=== PATIENT | female | born 1945 | race American Indian/Alaskan Native ===

== ENCOUNTER 2017-10-23 18:14 | Emergency (ER) | payer MEDICARE, OTHER ==
[~2017-10-23] VITALS: Ht 152.4 cm; Wt 64.4 kg
[~2017-10-23 18:14] MED LIST: ASPIR-LOW81 MG PO; BENADRYL25 MG PO; CALCIUM600 MG PO; CYCLOBENZAPRINE10 MG PO; DIAZEPAM5 MG PO; GABAPENTIN600 MG PO; LANTUS100 UNITS/ SUB-Q; LIPITOR10 MG PO; LISINOPRIL20 MG PO; METFORMIN HCL500 MG PO; MULTIVITAMINS1 EAC7 PO; PREDNISONE20 MG PO; VITAMIN D350000 UNIT PO
[2017-10-23] MEDS ORDERED: CYCLOBENZAPRINE10 MG PO (18:46)
[2017-10-23] MEDS ORDERED: ARNUITY ELLIPT50 MCG NAS (18:47)
[2017-10-23] MEDS ORDERED: OMEPRAZOLE20 MG PO (18:47)
== END 2017-10-23 21:25 | disposition home or self-care (01) ==
LOC: ED 18:14
DX: R51 Headache (principal); E11.9 Type 2 diabetes mellitus without complications; I10 Essential (primary) hypertension; E78.00 Pure hypercholesterolemia, unspecified; Z79.899 Other long term (current) drug therapy; Z79.84 Long term (current) use of oral hypoglycemic drugs; Z79.4 Long term (current) use of insulin; Z79.82 Long term (current) use of aspirin
CPT/HCPCS: 80053; 81001; 84443; 85025; 85651; 96361; 96374; 96375; 99284; J1200; J1885; J2405; J2765; J7030